=== PATIENT | male | born 1960 | race African-American/Black ===

== ENCOUNTER 2019-03-18 08:41 | Emergency (ER) | payer OTHER ==
[2019-03-18 09:00] VITALS: BP 148/84
--- NOTE | 2019-03-18 09:07 | PHYS DOC ---
Adult General Chief Complaint Chief Complaint: KNEE INJURY HPI HPI Patient is a 58 year old male who presents with states that he was going down the stairs outside when he began to slip. He states that he was holding a V8 in his left hand and he started to slip and he thinks that the V8 hit the top of h is right knee when he was trying to catch himself. Patient now having right patella pain. He rates pain a 6 out of 10. Review of Systems Review of Systems Musculoskeletal: Denies back pain. Right knee joint pain [] All other systems were reviewed and found to be within normal limits, except as documented in this note. Current Medications Current Medications Current Medications Medications (Trade) Dose Ordered Sig/Fab Start Time Stop Time Status Last Admin Dose Admin Ibuprofen (Motrin) 600 mg 1X ONCE 03/18/19 09:15 03/18/19 09:16 DC 03/18/19 09:12 600 MG Allergies Allergies Allergies Coded Allergies Type Severity Reaction Last Updated Verified No Known Drug Allergies 03/18/19 No Physical Exam Physical Exam Constitutional: Well developed, well nourished, no acute distress, non-toxic appearance. [] HENT: Normocephalic, atraumatic, bilateral external ears normal, oropharynx moist, no oral exudates, nose normal. [] Eyes: PERRLA, EOMI, conjunctiva normal, no discharge. [] Neck: Normal range of motion, no tenderness, supple, no stridor. [] Cardiovascular:Heart rate regular rhythm, no murmur [] Lungs & Thorax: Bilateral breath sounds clear to auscultation [] Abdomen: Bowel sounds normal, soft, no tenderness, no masses, no pulsatile masses. [] Skin: Warm, dry, no erythema, no rash. [] Back: No tenderness, no CVA tenderness. [] Extremities: No tenderness, no cyanosis, no clubbing, ROM intact, Right knee 1+ edema, space in the joint felt. [] Neurologic: Alert and oriented X 3, normal motor function, normal sensory function, no focal deficits noted. [] Psychologic: Affect normal, judgement normal, mood normal. [] Current Patient Data Vital Signs Vital Signs Date Time Temp Pulse Resp B/P (MAP) Pulse Ox O2 Delivery O2 Flow Rate FiO2 03/18/19 09:00 97.9 98 148/84 (105) 100 Room Air 97.9 EKG EKG [] Radiology/Procedures Radiology/Procedures [] Impressions: [facility] [address] [place] [address] IMAGING REPORT Signed PATIENT: BO YOUNG ACCOUNT: [id number] : 1960 LOCATION: ER AGE: 58 SEX: M EXAM STATUS: REG ER ORD. PHYSICIAN: BHARAT ARIZMENDI APRN REASON: knee injury, FELL GOING UP THE STEPS AND HIT KNEE ON THE STEP PROCEDURE: KNEE RIGHT 4V Three-view right knee dated 03/18/2019. No comparison available. CLINICAL INDICATION: Pain after injury. FINDINGS: 4 views of the right knee show normal bony alignment. No displaced fracture. No acute osseous or articular abnormality. No apparent joint effusion or loose body. IMPRESSION: No acute findings. Electronically signed by: Quan Encarnacion MD (03/18/2019 9:42 AM) [facility] DICTATED and SIGNED BY: QUAN ENCARNACION MD DATE: 03/18/19 0942 Course & Med Decision Making Course & Med Decision Making Patient can stand and bear some weight and is able to walk with a limp but a steady gait. Patient can fully extend and bend the knee. There is no laxity in joint. 1+ swelling to the right knee. Denies any numbness or tingling. Skin pink warm and dry. Popliteal pulse present. The patient is sitting and knee is palpated there is a space felt in the joint itself. No pain with palpation. X-ray is read as no acute findings. However exam findings as noted above. Patient will be referred to orthopedics. Sindy Disclaimer Sindy Disclaimer This electronic medical record was generated, in whole or in part, using a voice recognition dictation system. Departure Departure Impression: Primary Impression: Knee pain, right Disposition: HOME, SELF-CARE Condition: STABLE Referrals: CASSIE DEWEY (PCP) MIKAELA CLEMENS II, MD Patient Instructions: Knee Pain, [id number] Additional Instructions: Follow up with Orthopedics by calling on Wednesday to schedule a appointment. Take Medications as prescribed. Scripts Hydrocodone/Apap 5-325 (NORCO 5-325 TABLET) 1 Each Tablet 1 TAB PO PRN Q6HRS PRN for PAIN, #8 TAB 0 Refills Prov: BHARAT ARIZMENDI APRN 03/18/19 Ibuprofen (IBUPROFEN) 600 Mg Tablet 600 MG PO PRN Q6HRS PRN for INFLAMMATION, #20 TAB Prov: BHARAT ARIZMENDI APRN 03/18/19 Problem Qualifiers Primary Impression: Knee pain, right Chronicity: acute Qualified Codes: M25.561 - Pain in right knee BHARAT ARIZMENDI ROAD MANAGER Mar 18, 2019 09:07
[2019-03-18] MEDS ORDERED: IBUPROFEN 200 MG TABLET. PO ONE (09:15)
--- NOTE | 2019-03-18 09:45 | RAD ---
Three-view right knee dated 03/18/2019. No comparison available. CLINICAL INDICATION: Pain after injury. FINDINGS: 4 views of the right knee show normal bony alignment. No displaced fracture. No acute osseous or articular abnormality. No apparent joint effusion or loose body. IMPRESSION: No acute findings. Electronically signed by: Quan Encarnacion MD (03/18/2019 9:42 AM) [facility]
[2019-03-18] MEDS ORDERED: HYDR-3164 PO (10:11)
[2019-03-18] MEDS ORDERED: IBUP-1007 PO (10:11)
== END 2019-03-18 10:29 | disposition home or self-care (01) ==
LOC: ER 08:41
DX: M25.561 Pain in right knee (principal); G89.11 Acute pain due to trauma; W10.8XXA Fall (on) (from) other stairs and steps, initial encounter; Y93.89 Activity, other specified; Y92.89 Other specified places as the place of occurrence of the external cause; Y99.8 Other external cause status
CPT/HCPCS: 29505; 73564; 99284-25

== ENCOUNTER → 2019-03-29 | Outpatient (CLI) | payer OTHER ==
[2019-03-18 09:00] VITALS: BP 148/84
[~2019-03-29] MED LIST: HYDR-3164 PO; IBUP-1007 PO
--- NOTE | 2019-03-29 13:35 | KCIC ---
MR of the right knee HISTORY: Right knee pain. Pain and deformity about the patella. Injury. TECHNIQUE: Routine multiplanar sequences are obtained. FINDINGS: No evidence of medial meniscal tear. No evidence of lateral meniscal tear. Anterior and posterior cruciate ligaments are intact. Medial collateral ligament intact. Iliotibial band unremarkable. Fibular collateral ligament, biceps femoris tendon and popliteus tendon are intact. High-grade tear of the distal quadriceps tendon. A small subset of the vastus intermedius fibers maintaining continuity with the patella, but at least 80 percent of fibers are torn, and proximally retracted 2.5 cm. Fluid collection or hemorrhage at the tear extends into the anterior subcutaneous tissues as well as into the joint. Patellar tendon intact. The medial and lateral retinacula are thick and poorly defined could be injured as well. No evidence of acute articular cartilage defect. Chondromalacia the patella with mild/moderate thinning and a small central 2 mm defect with subjacent cystic change. No acute fracture. No aggressive bone destruction. Diffuse soft tissue edema around the knee. Mild fluid or hemorrhage tracking along the posterior popliteus. IMPRESSION: 1. High-grade tear of the distal quadriceps, greater than 80 percent of fibers involved, with 2.5 cm proximal retraction. Component of retinacular injury also suspected. 2. Large joint effusion extends through the defect into the anterior soft tissues. 3. 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 Electronically signed by: Quan Sawyer MD (03/29/2019 1:32 PM) [facility]
== END | disposition home or self-care (01) ==
LOC: KCIC MRI 11:19
PROVIDERS: ATTEND Physician Assistant
DX: S76.111A Strain of right quadriceps muscle, fascia and tendon, initial encounter (principal); M94.261 Chondromalacia, right knee; M25.461 Effusion, right knee; X58.XXXA Exposure to other specified factors, initial encounter; Y93.89 Activity, other specified; Y92.89 Other specified places as the place of occurrence of the external cause; Y99.8 Other external cause status
CPT/HCPCS: 73721

== ENCOUNTER 2019-05-05 06:08 | Day surgery (SDC) | payer OTHER ==
[~2019-05-05] VITALS: Ht 172.7 cm; Wt 120.0 kg
[~2019-05-05 06:08] MED LIST changes: +DAPA5TAB PO; +LINA5TAB PO; +REPA1TAB6 PO
[2019-05-05] MEDS ORDERED: fentaNYL PF VIAL 100 MCG/2 ML VIAL IV PRN (07:00)
[2019-05-05] MEDS ORDERED: IV RINGERS,LACTATED 1000ML 1,000 ML IV SCH (07:00)
[2019-05-05] MEDS ORDERED: ONDANSETRON PF 4 MG/2 ML VIAL. IV PRN (07:00)
[2019-05-05] MEDS ORDERED: HYDROmorphone 2 MG/ML VIAL IV PRN (07:00)
[2019-05-05] MEDS ORDERED: PROCHLORPERAZINE 10 MG/2 ML VIAL. IV PRN (07:00)
[2019-05-05] MEDS ORDERED: SUCCINYLCHOLINE 200 MG/10 ML VIAL. ONE (07:14)
[2019-05-05] MEDS ORDERED: INSULIN LISPRO 100 UNIT/ML 3ML VIAL for OP,RR ONLY. SQ PRN (07:15)
[2019-05-05] MEDS ORDERED: fentaNYL PF VIAL 100 MCG/2 ML VIAL ONE ×5 (07:15→10:23)
[2019-05-05] MEDS ORDERED: BUPIVACAINE-EPI 0.5%-1:200000 MPF 30 ML VIAL. ONE (08:31)
[2019-05-05] MEDS ORDERED: PROPOFOL 20 ML IV ONE (08:46)
[2019-05-05] MEDS ORDERED: LIDOCAINE 2% PF 5 ML VIAL. ONE (08:46)
[2019-05-05] MEDS ORDERED: DEXAMETHASONE SOD PHOS 4 MG/ML VIAL ONE (08:46)
[2019-05-05] MEDS ORDERED: ONDANSETRON PF 4 MG/2 ML VIAL. ONE (08:47)
[2019-05-05] MEDS ORDERED: KETOROLAC 30 MG/ML VIAL. ONE (08:47)
[2019-05-05] MEDS ORDERED: ESMOLOL 100 MG/10 ML VIAL. IVP ONE (09:08)
[2019-05-05] MEDS ORDERED: SEVOFLURANE 61 TO 120 MINUTES. IH ONE (09:09)
[2019-05-05] MEDS ORDERED: OXYC1TAB19 PO (09:39)
--- NOTE | 2019-05-05 09:43 | DISCH ---
DISCHARGE INSTRUCTIONS Condition on Discharge Condition on Discharge: Stable Activity After Discharge Activity Instructions for Disc: Other, see below (wear brace when up and around May remove when sitting, limit flexion to 20) Weight Bearing Status after Di: As tolerated (weightbearing as tolerated with brace locked in extension only) Diet after Discharge Diet after Discharge: Regular Wound Incision Care Wound/Incision Care: Ice to area for comfort, Change dressing (May remove dressing in 4 days keep butterfly strips intact and wrapped with Yonathan wrap or other compressive dressing) Contacting the DRPrabhakar after DC Call your doctor for: Concerns you may have Follow-Up Follow up with: Dr Pierce 10 days NATALIE PIERCE MD May 05, 2019 09:43
[2019-05-05] MEDS: fentaNYL PF VIAL 100 MCG/2 ML VIAL IV PRN ×4 (09:59→10:38)
[2019-05-05] MEDS ORDERED: oxyCODONE/APAP 7.5/325 1 TAB TABLET PO ONE (10:00)
--- NOTE | 2019-05-05 10:10 | PDOC4 ---
Operative Note Operative Note Date of surgery: 05/05/2019 Preoperative diagnosis: Distal quadriceps rupture right Postoperative diagnosis: Same with rupture from proximal pole patella Operative procedure: Right quadriceps rupture repair Surgeon: Kari Assist: Fazal barrera Anesthesia: Gen. Estimated blood loss: 25 mL Complications: None Operative indications: Please see my preoperative clinic note for detailed operative indications and note that patient has a very high-grade near 80% complete rupture of the distal quadriceps with weakness and pain that not complete lack of extensor motion. I had gone over with him the operative and nonoperative treatment options the usual concerned that if the tendon is pulled away somewhat that the scar tissue that forms is usually not as robust and more susceptible to injury and surgery has the risks of possible nonhealing infection medical or other anesthetic Complications among others we went through the recovery process and expected restrictions and rationale he wishes to proceed with surgical evaluation and treatment. Operative text: Patient was identified procedure verified patient placed in the supine position on the operating table. After adequate amounts of general anesthesia were administered the right lower extremity was prepped and draped in standard sterile fashion with a thigh tourniquet. After timeout was performed patient procedure identified and verified a midline incision was made and dissection carried out down to the tendon and patellar fascia which were divided in midline incision was made over the area and a retracted tendon was noted to be present overall but the vastus medialis insertion which remained intact. Scar tissue was debrided off the proximal patella and tendon edges were refreshed a total of 4 drill holes were made through the patella and tracts were marked by suture. A total of 8 strands of #5 Ethibond suture were placed in a woven fashion through the quadriceps tendon and directed to the drill holes and sutures were placed underneath the patellar tendon to avoid any injury and with the quadriceps reduced to the superior pole of patella sutures were tied off distally and an additional 2 strands were added medially for additional support. Excellent apposition was obtained thorough irrigation carried out normal saline solution closure of the bursal layer with #1 Vicryl in a running fashion subcutaneous closure with 2-0 Vicryl skin closure with subcuticular 3-0 strata fix Monocryl, Steri-Strips and Mastisol were applied followed by sterile dressings and a brace locked in full extension with 20 flexion only allowed if unlocked. He was returned recovery room in stable condition having tolerated the procedure well. Fazal barrera was present for the procedure and assisted in the prepping draping positioning retraction and closure NATALIE WILSON MD May 05, 2019 10:10
[2019-05-05] MEDS ORDERED: MORPHINE SULFATE 2 MG/ML VIAL. ONE (10:13)
[2019-05-05] MEDS: MORPHINE SULFATE 2 MG/ML VIAL. IV PRN ×2 (10:16→10:26)
[2019-05-05 11:00] VITALS: BP 178/89
[2019-05-06 00:08] LABS: HEMOGLOBIN A1C 8.6 % (4.8-5.6)
== END 2019-05-05 11:45 | disposition home or self-care (01) ==
LOC: SURG 06:08
PROVIDERS: ATTEND Orthopaedic Surgery
DX: S76.111A Strain of right quadriceps muscle, fascia and tendon, initial encounter (principal); E11.9 Type 2 diabetes mellitus without complications; E66.9 Obesity, unspecified; Z68.41 Body mass index [BMI] 40.0-44.9, adult; Z79.84 Long term (current) use of oral hypoglycemic drugs; Z79.899 Other long term (current) drug therapy; X58.XXXA Exposure to other specified factors, initial encounter; Y93.89 Activity, other specified; Y92.89 Other specified places as the place of occurrence of the external cause; Y99.8 Other external cause status
CPT/HCPCS: 27385; 36415; 82962; 83036; A7015; C1713; J0330; J0696; J1100; J1815; J1885; J2001; J2270; J2405; J2704; J3010; J3490; J7120